=== PATIENT | female | born 1975 | race Caucasian/White ===

== ENCOUNTER 2017-02-21 19:18 | Emergency (ER) | payer MEDICAID ==
[~2017-02-21 19:18] MED LIST: ATIVAN-DPS1 MG PO; BACTRIM DS DPS1 TAB PO; GRANIX480 MCG/0. SQ; ICLUSIG15 MG PO; LOPRESSOR DPS12.5 MG PO; MAG-OX400 MG PO; MARYS PO; MICRO-K DPS10 MEQ PO; NORMAL SALINE FL5 ML IV; NORVASC5 MG PO; PERCOCET 5 DPS1 TAB PO; ROBITUSSIN100 MG/5 M PO; TEARS NATURAL D15 ML OU; TYLENOL DPS325 MG PO; VANCO-0.9%1.75 GM/50 IV; VANCOCIN-DPS1 GM IV; VANCOCIN125 MG PO; VFEND200 MG PO; ZOVIRAX800 MG PO; [UNRECOGNIZED DRUG - OTHER] PO
--- NOTE | 2017-03-05 21:14 | ER ---
ADMIT: 02/21/2017 RM/LOC: ER [facility] MR#: [id number] [address] [address] [address] [place] [address] Emergency Room Report SEX: F AGE: 41 : 1975 DATE: 02/21/2017 ADDENDUM: CHIEF COMPLAINT: Headache. HISTORY OF PRESENT ILLNESS: This is a 41-year-old, who has a history of migraines. She said tonight, she had a bad migraine, she felt a little bit dizzy with it. She vomited x1, she saw a streak of blood in it. COURSE IN THE EMERGENCY ROOM: CBC, CMP, and lipase were done. Her white count is 12.7, hemoglobin is normal, platelets are 233. Chemistries are normal. She feels better after Reglan, Benadryl, and morphine. Having her go home, push fluids, rest, and follow up with her primary care physician if symptoms continue. CLINICAL IMPRESSION: Migraine headache. FELICITAS Mcfadden / Jeevan Horta MD / beatrisl JOB #: [id number] CC: Jeevan Horta MD, Attending Physician Lev Clifton MD, Family Physician
== END 2017-02-21 22:00 | disposition home or self-care (01) ==
LOC: ER 19:18
DX: G43.909 Migraine, unspecified, not intractable, without status migrainosus (principal); I10 Essential (primary) hypertension; Z85.6 Personal history of leukemia

== ENCOUNTER 2017-03-28 16:49 | Emergency (ER) | payer MEDICAID ==
--- NOTE | 2017-04-02 16:04 | ER ---
ADMIT: 03/28/2017 RM/LOC: ER [facility] MR#: [id number] [address] [address] [address] [place] [address] Emergency Room Report SEX: F AGE: 42 : 1975 DATE: 03/28/2017 HISTORY OF PRESENT ILLNESS: A 42-year-old, female coming in with recurrent nausea. She has acute lymphocytic leukemia. She is supposed to get a bone marrow transplant in the near future. She also is getting chemo on a daily basis, I think suppression until she gets her bone marrow transplant. She says she throws up every day. What medicine they have given her so far has not helped. We are going to put her on Zofran 4 mg four times a day, and then she can go from there, 4 will be 16. She can double that if need be. We had done CBC, chemistry, and CT scan. Those were all negative, so I am not thinking it is anything more than possibly chemo medication and probably just overall health. CONDITION ON DISCHARGE: Fair. Jose Milian MD/ álvaro JOB #: [id number] CC: Jose Milian MD, Attending Physician Lev Clifton MD, Family Physician
== END 2017-03-28 18:35 | disposition home or self-care (01) ==
LOC: ER 16:49
DX: R11.0 Nausea (principal); C95.90 Leukemia, unspecified not having achieved remission

== ENCOUNTER 2017-05-12 21:24 | Emergency (ER) | payer MEDICAID ==
--- NOTE | 2017-05-13 03:19 | ER ---
ADMIT: 05/12/2017 RM/LOC: ER [facility] MR#: [id number] [address] [address] [address] [place] [address] Emergency Room Report SEX: F AGE: 42 : 1975 DATE: 05/12/2017 The patient is a 42-year-old, female with ALL, underwent bone marrow biopsy on April 25. Complains of persistent pain from her right iliac crest to her leg. Denies any fevers, chills, or recent injury. Exam remarkable for nontoxic, afebrile female with no obvious cellulitis or wound visible on her buttock or posterior iliac crest. Dismissed with hydrocodone 5/325 #15 plus 6 from Pyxis. Follow up with Dr. Clifton for ongoing care and pain needs. Jeevan Horta MD/ álvaro JOB #: [id number] CC: Jeevan Horta MD, Attending Physician Lev Clifton MD, Family Physician Lev Clifton MD
--- NOTE | 2017-05-19 20:11 | ER ---
ADMIT: 05/12/2017 RM/LOC: ER [facility] MR#: [id number] [address] [address] [address] [place] [address] Emergency Room Report SEX: F AGE: 42 : 1975 DATE: 05/12/2017 DIAGNOSIS: Right hip pain since bone marrow biopsy. Jeevan Horta MD/ modl JOB #: [id number] CC: Jeevan Horta MD, Attending Physician Lev Clifton MD, Family Physician
== END 2017-05-13 00:25 | disposition home or self-care (01) ==
LOC: ER 21:24
DX: M25.551 Pain in right hip (principal); Z79.899 Other long term (current) drug therapy

== ENCOUNTER → 2017-08-13 | Outpatient (CLI) | payer MEDICAID | END | disposition home or self-care (01) | LOC: RAD.S 10:59 | DX: Z12.31 Encounter for screening mammogram for malignant neoplasm of breast (principal) ==